=== PATIENT | male | born 1950 | race American Indian/Alaskan Native ===

== ENCOUNTER 2017-10-23 04:53 | Emergency (ER) | payer OTHER ==
[2017-10-23] MEDS ORDERED: ULTRAM PO ONE (07:36)
--- NOTE | 2017-10-23 07:41 | Emergency Department Report ---
Upper Extremity - HPI Chief Complaint: Extremity Injury, Upper Stated Complaint: FALL Time Seen by Provider: 10/23/17 07:23 Upper Extremity: Left Shoulder Occurred When: 2 Days Mechanism: Fall Severity: moderate Symptoms: Yes Pain with Movement, Yes Limited Range of Movement, No Deformity, No Numbness, No Weakness, No Swelling, No Bruising/Ecchymosis, No Laceration or Abrasion Other History: This is a 67-year-old -[place] male who presents with left shoulder and left rib pain status post a fall 2 days ago. Patient states he was at [email or web address] and he fell and hit the left side of his body on a aluminum table. He use a walker to ambulate and the walker fell on top of him when he fell. He went home and applied real-time cream to his left shoulder and felt better Thursday. Patient reports he did a lot of errands and came home around 8 PM and started feeling sharp pains on the left rear while he was trying to hot die picker something off the floor. Patient reports pain is 10 out of 10 and intermittent. The pain is radiating from left ribs to left flank. Patient denies hitting his head, LOC, chest pain, shortness of breath, and nausea or vomiting. ED Review of Systems ROS: Stated complaint: FALL Other details as noted in HPI Constitutional: denies: chills, fever Respiratory: denies: cough, shortness of breath, wheezing Cardiovascular: chest pain (left side rear pain radiating to left flank). denies: palpitations Gastrointestinal: denies: abdominal pain, nausea, diarrhea Musculoskeletal: arthralgia (left shoulder pain). denies: back pain, joint swelling Skin: denies: rash, lesions Neurological: denies: headache, weakness, numbness, paresthesias Psychiatric: denies: anxiety, depression ED Past Medical Hx - Past Medical History Previous Medical History?: Yes Hx Hypertension: Yes Hx Diabetes: Yes Additional medical history: High Cholesterol, chronic pain - Surgical History Past Surgical History?: Yes Additional Surgical History: Hip - Social History Smoking Status: Former Smoker Substance Use Type: None - Medications Home Medications: Home Medications Medication Instructions Recorded Confirmed Last Taken Type Acetaminophen [Tylenol] 1,000 mg PO Q6HR PRN 05/22/13 05/22/13 Unknown History Atorvastatin [Lipitor] 05/22/13 05/22/13 Unknown History Etodolac 300 mg PO BID 05/22/13 05/22/13 Unknown History Gabapentin [Neurontin] 1,200 mg PO Q8H 05/22/13 05/22/13 Unknown History HYDROcodone/ACETAMINOPHEN PO QID PRN 05/22/13 05/22/13 Unknown History [Hydrocodon-Acetaminophn 10-325] HYDROcodone/APAP 10-325 [[place] 1 each PO Q8H #40 tablet 05/22/13 Unknown Rx 10-325 mg TAB] Hydrochlorothiazide [Hctz] DAILY 05/22/13 05/22/13 Unknown History Paroxetine HCl [Paroxetine] 40 PO DAILY 05/22/13 05/22/13 Unknown History metFORMIN [Glucophage] 875 PO BID 05/22/13 05/22/13 Unknown History traMADol [Ultram 50 MG tab] 50 mg PO Q6HR PRN #15 tablet 10/23/17 Unknown Rx Upper Extremity Exam - Exam General: Vital signs noted. No distress. Alert and acting appropriately, Obese. Chest: Regular rate and rhythm, positive tenderness at ribs 7-9, no erythema or swelling. Head and Torso: No HEENT Abnormality, No Neck Tenderness, No Chest/Lungs Abnormality, No Abdominal Tenderness, No Back Tenderness Shoulder Exam: Yes AC Joint Tenderness, No Shoulder Tenderness, No Clavicle Tenderness, No Normal Range of Motion in Shoulder (FROM, limited by pain), No Shoulder Deformity Arm Exam: No Arm/Humerus Tenderness, No Arm Deformity Elbow: Yes Normal Range of Motion in Elbow, No Elbow Tenderness, No Elbow Deformity Forearm: No Forearm Tenderness, No Forearm Deformity, No Pain with Pronation, No Pain with Supination Wrist: Yes Normal ROM in Wrist, No Wrist Tenderness, No Wrist Deformity, No Snuffbox Tenderness, No Pain with Axial Thumb Compression Hand: Yes Normal ROM in Digit(s), No Hand Tenderness, No Hand Deformity, No Digit Tenderness, No Digit(s) Deformity, No Tendon Dysfunction CMS Exam: No Broken Skin, No Normal Distal Pulses, No Normal Capillary Refill, No Normal Distal Sensation ED Course Vital Signs 10/23/17 05:17 Temperature 98.7 F Pulse Rate 77 Respiratory 18 Rate Blood Pressure 152/98 O2 Sat by Pulse 96 Oximetry ED Medical Decision Making - Radiology Data Radiology results: report reviewed X-ray of left ribs impression: Possible nondisplaced fracture of the left anterior A3, and correlation with physical exam is recommended. No pleural effusion or no pneumothorax. Minimal streaky opacities at both lung bases, left greater than right, favor atelectasis. X-ray left shoulder impression: No acute fracture or dislocation. No glenohumeral humeral andacromioclavicular osteoarthritis. 7 mm chronic ossicles. The great tuberosity, representing intra-articular bodies versus calcific tendinopathy. - Medical Decision Making This is a 67-year-old male presents with left shoulder and left rib pain status post fall 2 days ago. Patient was examined by me. Nontoxic appearing and stable. No distress noted. Patient given tramadol 50 mg by mouth whites and ER. X-ray of left ribs and left shoulder obtained and read by radiologist. X- ray of left ribs impression: Possible nondisplaced fracture of the left anterior A3, and correlation with physical exam is recommended. No pleural effusion or no pneumothorax. Minimal streaky opacities at both lung bases, left greater than right, favor atelectasis. X-ray left shoulder impression: No acute fracture or dislocation. No glenohumeral humeral andacromioclavicular osteoarthritis. 7 mm chronic ossicles. The great tuberosity, representing intra-articular bodies versus calcific tendinopathy. Start Tramadol for pain. Patient informed of results. Plan discussed with patient to discharge home and treat outpatient. He agrees with ER plan. Patient discharged home in stable condition. Patient's primary care provider is [place]. Ferrera at the [place]. Follow up with PCP and orthopedic surgery in 24-72 hours. Critical care attestation.: If time is entered above; I have spent that time in minutes in the direct care of this critically ill patient, excluding procedure time. ED Disposition Clinical Impression: Rib pain on left side Osteoarthritis Qualifiers: Osteoarthritis location: shoulder Osteoarthritis type: primary Laterality: left Qualified Code(s): M19.012 - Primary osteoarthritis, left shoulder Rib fracture Qualifiers: Encounter type: initial encounter Rib fracture type: single rib Fracture type: closed Laterality: left Qualified Code(s): S22.32XA - Fracture of one rib, left side, initial encounter for closed fracture Left shoulder pain Qualifiers: Chronicity: acute Qualified Code(s): M25.512 - Pain in left shoulder Disposition: DC-01 TO HOME OR SELFCARE Is pt being admited?: No Does the pt Need Aspirin: No Condition: Stable Instructions: Osteoarthritis (ED), Rib Fracture (ED) Additional Instructions: Rest Use ice or heat on affected area for 20 minutes and off for 2 hours. Take pain medication as needed for pain. Follow up with Primary Care Provider in 24-72 hours. Follow-up with orthopedic surgery in 2-3 days. Prescriptions: traMADol [Ultram 50 MG tab] 50 mg PO Q6HR PRN #15 tablet PRN Reason: Pain Referrals: [facility] [Outside] - 3-5 Days [facility] [Outside] - 3-5 Days ORION KIM MD [Staff Physician] - 3-5 Days [facility] [Provider Group] - 3-5 Days Time of Disposition: 10:05 Print Language: SLOVENIAN
[2017-10-23 08:00] VITALS: BP 158/86
--- NOTE | 2017-10-26 14:24 | XRay Report ---
FINAL REPORT EXAM: XR SHOULDER 2+V LT HISTORY: Left shoulder swelling and pain. TECHNIQUE: Three radiographs of the left shoulder were obtained. No prior studies are available for comparison. FINDINGS: There is no fracture or dislocation. There is mild marginal spurring at the inferomedial humeral head. A 7 mm chronic appearing rounded bony ossicle is seen superior to the greater tuberosity, which may represent intra-articular body or calcific tendinopathy. There is mild acromioclavicular osteoarthritis. No other discrete osseous abnormality is seen. No significant soft tissue abnormality is identified. If pain persists, MRI examination may be warranted for further evaluation. IMPRESSION: 1. No acute fracture or dislocation. 2. Mild glenohumeral and acromioclavicular osteoarthritis. 7 mm chronic bony ossicle superior to the greater tuberosity, representing intra-articular body versus calcific tendinopathy.
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
== END 2017-10-23 10:40 | disposition home or self-care (01) ==
LOC: ED 04:53
DX: S22.32XA Fracture of one rib, left side, initial encounter for closed fracture (principal); M19.012 Primary osteoarthritis, left shoulder; M25.512 Pain in left shoulder; I10 Essential (primary) hypertension; E11.9 Type 2 diabetes mellitus without complications; E78.00 Pure hypercholesterolemia, unspecified; G89.29 Other chronic pain; Z87.891 Personal history of nicotine dependence; W19.XXXA Unspecified fall, initial encounter; Y93.89 Activity, other specified; Y99.8 Other external cause status; Y92.89 Other specified places as the place of occurrence of the external cause

== ENCOUNTER 2018-06-06 16:50 | Emergency (ER) | payer MEDICARE, OTHER ==
[2018-06-06 17:03] VITALS: BP 154/87
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
[2018-06-06] MEDS ORDERED: NORCO 5/325 PO STA (17:43)
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
[2018-06-06] MEDS ORDERED: NORCO 5/325 ONE (19:58)
== END 2018-06-06 20:06 | disposition home or self-care (01) ==
LOC: ED 16:50
DX: M54.5 Low back pain (principal); M25.551 Pain in right hip; M25.512 Pain in left shoulder; I10 Essential (primary) hypertension; E11.9 Type 2 diabetes mellitus without complications; G43.909 Migraine, unspecified, not intractable, without status migrainosus; E78.00 Pure hypercholesterolemia, unspecified; G89.29 Other chronic pain; V49.49XA Driver injured in collision with other motor vehicles in traffic accident, initial encounter; Y93.89 Activity, other specified; Y92.488 Other paved roadways as the place of occurrence of the external cause; Y99.8 Other external cause status
CPT/HCPCS: 72100; 99283

== ENCOUNTER 2019-04-11 15:19 | Emergency (ER) | payer MEDICARE ==
[2019-04-11 18:37] VITALS: BP 163/88
--- NOTE | 2019-04-11 18:49 | Emergency Department Report ---
ED Rash HPI - HPI Chief Complaint: Skin/Abscess/Foreign Body Stated Complaint: BUG/SPIDER BITE Time Seen by Provider: 04/11/19 18:46 Duration: 1 week Location: Back Suspected Cause: Unknown Rash Symptoms: Yes Itching, Yes Blistering, No Facial Swelling, No Tongue/Oral Swelling, No Breathing Difficulties, No Choking Sensation, No Wheezing/Dyspnea, No Peeling, No Fever, No Lightheaded, No Malaise, No Myalgias Severity: severe Other History: This is a 68-year-old male that presents to the ER with a painful blistering rash to back radiating to under right axilla. Patient states he is applying neosporin with worsening symptoms. Patient states the rash is burning and itching constantly. He denies drainage, fever, chills, numbness, tingling, or swelling. ED Review of Systems ROS: Stated complaint: BUG/SPIDER BITE Other details as noted in HPI Constitutional: denies: chills, fever Respiratory: denies: cough, shortness of breath, wheezing Cardiovascular: denies: chest pain, palpitations Gastrointestinal: denies: abdominal pain, nausea, diarrhea Skin: rash (right shoulder blade to under right axilla). denies: lesions Neurological: denies: headache, weakness, paresthesias Psychiatric: denies: anxiety, depression ED Past Medical Hx - Past Medical History Previous Medical History?: Yes Hx Hypertension: Yes Hx Diabetes: Yes Hx Headaches / Migraines: Yes Additional medical history: High Cholesterol, chronic pain - Surgical History Past Surgical History?: Yes Additional Surgical History: Left Hip THR - Social History Smoking Status: Never Smoker Substance Use Type: None - Medications Home Medications: Home Medications Medication Instructions Recorded Confirmed Last Taken Type Acetaminophen [Tylenol] 1,000 mg PO Q6HR PRN 05/22/13 05/22/13 Unknown History Atorvastatin [Lipitor] 05/22/13 05/22/13 Unknown History Etodolac 300 mg PO BID 05/22/13 05/22/13 Unknown History Gabapentin [Neurontin] 1,200 mg PO Q8H 05/22/13 05/22/13 Unknown History HYDROcodone/ACETAMINOPHEN PO QID PRN 05/22/13 05/22/13 Unknown History [Hydrocodon-Acetaminophn 10-325] HYDROcodone/APAP 10-325 [[place] 1 each PO Q8H #40 tablet 12/29/13 Unknown Rx 10-325 mg TAB] PARoxetine HCl [Paroxetine] 40 PO DAILY 05/22/13 05/22/13 Unknown History hydroCHLOROthiazide [Hctz] DAILY 05/22/13 05/22/13 Unknown History metFORMIN [Glucophage] 875 PO BID 05/22/13 05/22/13 Unknown History Azithromycin [Zithromax Z-RUPERTO] 250 mg PO DAILY #6 tablet 10/23/17 Unknown Rx traMADoL [Ultram 50 MG tab] 50 mg PO Q6HR PRN #15 tablet 10/23/17 Unknown Rx Ibuprofen [Motrin] 600 mg PO Q8H PRN #20 tablet 01/01/18 Unknown Rx methOCARBAMOL [Robaxin TAB] 500 mg PO Q6H PRN #15 tablet 01/01/18 Unknown Rx traMADoL [Ultram] 50 mg PO Q6HR PRN #12 tablet 01/01/18 Unknown Rx Meloxicam 15 mg PO DAILY #10 tablet 06/06/18 Unknown Rx Methocarbamol [Robaxin-750] 750 mg PO Q8HR #20 tablet 06/06/18 Unknown Rx Valacyclovir HCl [Valtrex] 1,000 mg PO BID #20 tablet 04/11/19 Unknown Rx traMADoL [Ultram 50 MG tab] 50 mg PO Q6HR PRN #12 tablet 04/11/19 Unknown Rx Rash Exam - Exam General: Vital signs noted. No distress. Alert and acting appropriately. HEENT: No Periorbital Edema, No Conjuctival Injection, No Chemosis, No Perioral Edema, No Tongue Edema, No Uvular Edema, No Compromised Airway, No Drooling Lungs: Yes Good Air Exchange (Normal Breath Sounds), No Wheezes, No Ronchi, No Stridor, No Cough, No Labored Respirations, No Retractions, No Use of Accessory Muscles, No Other Abnormal Lung Sounds Heart: Yes Regular, No Murmur Skin: Yes Erythema, Yes Other ( Erythematous, vesicular rash to right thoracic spine to right axilla following a dermatome, tenderness, crusting to portion over thoracic spine), No Urticarial Rash, No Maculopapular Rash, No Morbilliform rash, No Bulla(e), No Excoriations, No Weeping, No Tenderness, No Edema, No Encrustations ED Course Vital Signs 04/11/19 18:36 Temperature 97.6 F Pulse Rate 67 Respiratory 18 Rate Blood Pressure 163/88 O2 Sat by Pulse 97 Oximetry ED Medical Decision Making - Medical Decision Making This is a 68-year-old male that presents to the ER with painful rash to right side of back. Patient is stable and was examined by me. Erythematous, vesicular rash to right thoracic spine to right axilla following a dermatome, tenderness, crusting to portion over thoracic spine. Start valacyclovir and tramadol. Patient was instructed to Follow-up with a primary care doctor in 3-5 days. At time of discharge, the patient does not seem toxic or ill in appearance. No acute signs of distress noted. Patient agrees to discharge treatment plan of care. No further questions noted by the patient. Critical care attestation.: If time is entered above; I have spent that time in minutes in the direct care of this critically ill patient, excluding procedure time. ED Disposition Clinical Impression: Rash of back Herpes zoster Qualifiers: Herpes zoster complications: without complications Qualified Code(s): B02.9 - Zoster without complications Disposition: DC-01 TO HOME OR SELFCARE Is pt being admited?: No Condition: Stable Instructions: Herpes Zoster (ED) Prescriptions: traMADoL [Ultram 50 MG tab] 50 mg PO Q6HR PRN #12 tablet PRN Reason: Pain Valacyclovir HCl [Valtrex] 1,000 mg PO BID #20 tablet Referrals: SIRIA STEWART MD [Primary Care Provider] - 3-5 Days Time of Disposition: 19:55
== END 2019-04-11 22:06 | disposition home or self-care (01) ==
LOC: ED 15:19
DX: B02.9 Zoster without complications (principal); I10 Essential (primary) hypertension; E11.9 Type 2 diabetes mellitus without complications; G43.909 Migraine, unspecified, not intractable, without status migrainosus; E78.00 Pure hypercholesterolemia, unspecified; G89.29 Other chronic pain; Z79.84 Long term (current) use of oral hypoglycemic drugs; Z79.1 Long term (current) use of non-steroidal anti-inflammatories (NSAID); Z79.899 Other long term (current) drug therapy
CPT/HCPCS: 99282

== ENCOUNTER 2020-07-13 00:16 | Emergency (ER) | payer MEDICARE ==
[2020-07-13] MEDS ORDERED: HYDROcodone/ACETAMINOPHEN 5-325 MG TAB PO ONE (00:50)
--- NOTE | 2020-07-13 00:56 | Emergency Department Report ---
ED General Adult HPI - General Chief complaint: Extremity Problem,Nontraumatic Stated complaint: SWOLLEN FEET/LEGS PAINFUL Source: patient Mode of arrival: Ambulatory Limitations: No Limitations - History of Present Illness Initial comments: pt is a 70 y/o aam with hx of CHF who presents for bilat LE pain and swelling x 1 week, pt denies n/v, no sob , no dizziness, no light headedness. pt denies faill injury or trauma , symptoms exacerbated by activity , symptoms relieved by rest - Related Data Home Medications Medication Instructions Recorded Confirmed Last Taken Acetaminophen [Acetaminophen TAB] 1,000 mg PO Q6HR PRN 05/22/13 07/25/19 Unknown Atorvastatin [Lipitor] 40 mg PO QHS 05/22/13 07/25/19 1 Day Ago ~07/24/19 Etodolac 300 mg PO BID 05/22/13 07/25/19 1 Day Ago ~07/24/19 Gabapentin [Neurontin] 1,200 mg PO Q8H 05/22/13 07/25/19 1 Day Ago ~07/24/19 HYDROcodone/ACETAMINOPHEN 5 mg PO QID PRN 05/22/13 07/25/19 Unknown [Hydrocodon-Acetaminophn 10-325] PARoxetine HCL [PARoxetine] 40 mg PO DAILY 05/22/13 07/25/19 1 Day Ago ~07/24/19 hydroCHLOROthiazide [HCTZ] 25 mg PO DAILY 05/22/13 07/25/19 1 Day Ago ~07/24/19 metFORMIN [Glucophage] 850 mg PO BID 05/22/13 07/25/19 1 Day Ago ~07/24/19 Previous Rx's Medication Instructions Recorded Last Taken Type methOCARBAMOL [Robaxin TAB] 500 mg PO Q6H PRN #15 tablet 01/01/18 Unknown Rx traMADoL [Ultram 50 MG tab] 50 mg PO Q6HR PRN #12 tablet 01/01/18 Unknown Rx Meloxicam 15 mg PO DAILY #10 tablet 06/06/18 1 Day Ago Rx ~07/24/19 Valacyclovir HCl [Valtrex] 1,000 mg PO BID #20 tablet 04/11/19 1 Day Ago Rx ~07/24/19 Pantoprazole [Protonix] 40 mg PO QDAY #20 tablet 07/27/19 Unknown Rx Acetaminophen/Codeine [Tylenol 1 tab PO Q6H PRN #12 tab 07/13/20 Unknown Rx /Codeine # 3 tab] Capsaicin 0.075% [Zostrix Hp 1 applicatio TP TID #1 tube 07/13/20 Unknown Rx 0.075%] Furosemide [Lasix TAB] 40 mg PO QDAY #3 tablet 07/13/20 Unknown Rx Allergies Allergy/AdvReac Type Severity Reaction Status Date / Time No Known Allergies Allergy Verified 05/22/13 04:44 ED Review of Systems ROS: Stated complaint: SWOLLEN FEET/LEGS PAINFUL Other details as noted in HPI Constitutional: denies: chills, fever Eyes: denies: eye pain, eye discharge, vision change ENT: denies: as per HPI Respiratory: denies: cough, shortness of breath, wheezing Cardiovascular: denies: chest pain, palpitations Endocrine: no symptoms reported Gastrointestinal: denies: abdominal pain, nausea, diarrhea Genitourinary: denies: urgency, dysuria Musculoskeletal: arthralgia, other (bilat le pain ). denies: back pain, joint swelling Skin: denies: rash, lesions Neurological: denies: headache, weakness, paresthesias Psychiatric: denies: anxiety, depression Hematological/Lymphatic: denies: easy bleeding, easy bruising ED Past Medical Hx - Past Medical History Previous Medical History?: Yes Hx Hypertension: Yes Hx Heart Attack/AMI: No Hx Diabetes: Yes Hx Liver Disease: No Hx Renal Disease: No Hx Sickle Cell Disease: No Hx Headaches / Migraines: Yes Hx Seizures: No Hx Asthma: No Hx COPD: No Additional medical history: High Cholesterol, chronic pain - Surgical History Past Surgical History?: Yes Hx Pacemaker: No Hx Internal Defibrillator: No Additional Surgical History: Left Hip THR - Social History Smoking Status: Never Smoker Substance Use Type: None - Medications Home Medications: Home Medications Medication Instructions Recorded Confirmed Last Taken Type Acetaminophen [Acetaminophen TAB] 1,000 mg PO Q6HR PRN 05/22/13 07/25/19 Unknown History Atorvastatin [Lipitor] 40 mg PO QHS 05/22/13 07/25/19 1 Day Ago History ~07/24/19 Etodolac 300 mg PO BID 05/22/13 07/25/19 1 Day Ago History ~07/24/19 Gabapentin [Neurontin] 1,200 mg PO Q8H 05/22/13 07/25/19 1 Day Ago History ~07/24/19 HYDROcodone/ACETAMINOPHEN 5 mg PO QID PRN 05/22/13 07/25/19 Unknown History [Hydrocodon-Acetaminophn 10-325] PARoxetine HCL [PARoxetine] 40 mg PO DAILY 05/22/13 07/25/19 1 Day Ago History ~07/24/19 hydroCHLOROthiazide [HCTZ] 25 mg PO DAILY 05/22/13 07/25/19 1 Day Ago History ~07/24/19 metFORMIN [Glucophage] 850 mg PO BID 05/22/13 07/25/19 1 Day Ago History ~07/24/19 methOCARBAMOL [Robaxin TAB] 500 mg PO Q6H PRN #15 tablet 01/01/18 07/25/19 Unknown Rx traMADoL [Ultram 50 MG tab] 50 mg PO Q6HR PRN #12 tablet 01/01/18 07/25/19 Unknown Rx Meloxicam 15 mg PO DAILY #10 tablet 06/06/18 07/25/19 1 Day Ago Rx ~07/24/19 Valacyclovir HCl [Valtrex] 1,000 mg PO BID #20 tablet 04/11/19 07/25/19 1 Day Ago Rx ~07/24/19 Pantoprazole [Protonix] 40 mg PO QDAY #20 tablet 07/27/19 Unknown Rx Acetaminophen/Codeine [Tylenol 1 tab PO Q6H PRN #12 tab 07/13/20 Unknown Rx /Codeine # 3 tab] Capsaicin 0.075% [Zostrix Hp 1 applicatio TP TID #1 tube 07/13/20 Unknown Rx 0.075%] Furosemide [Lasix TAB] 40 mg PO QDAY #3 tablet 07/13/20 Unknown Rx ED Physical Exam - General Limitations: No Limitations General appearance: alert, in no apparent distress - Head Head exam: Present: atraumatic, normocephalic - Eye Eye exam: Present: normal appearance, PERRL, EOMI - ENT ENT exam: Present: normal exam, mucous membranes moist - Neck Neck exam: Present: normal inspection, tenderness, full ROM. Absent: meningis mus, lymphadenopathy, thyromegaly - Expanded Neck Exam Expanded Neck exam: Absent: tenderness, midline deformity, anterior neck swelling, thyroi d mass, carotid bruit, tracheal deviation - Respiratory Respiratory exam: Present: normal lung sounds bilaterally. Absent: respiratory distress, wheezes, stridor, chest wall tenderness - Cardiovascular Cardiovascular Exam: Present: regular rate, normal rhythm, normal heart sounds. Absent: systolic murmur, diastolic murmur, rubs, gallop - GI/Abdominal GI/Abdominal exam: Present: soft, normal bowel sounds. Absent: distended, tenderness, guarding, rebound, rigid, bruit, hernia - Rectal Rectal exam: Present: deferred - Extremities Exam Extremities exam: Present: full ROM, normal capillary refill, pedal edema. Absent: tenderness, joint swelling, calf tenderness - Back Exam Back exam: Present: normal inspection, full ROM. Absent: CVA tenderness (R), CVA tenderness (L), vertebral tenderness - Neurological Exam Neurological exam: Present: alert, oriented X3, CN II-XII intact, normal gait, reflexes normal. Absent: motor sensory deficit - Expanded Neurological Exam Expanded Patient oriented to: Present: person, place Speech: Present: fluid speech Cranial nerves: EOM's Intact: Normal, Gag Reflex: Normal, Tongue Deviation: Normal Motor strength exam: RUE: 5, LUE: 5, RLE: 5, LLE: 5 DTR: ankle (R): 2+, ankle (L): 2+ Best Eye Response (Emely): (4) open spontaneously Best Motor Response (Emely): (6) obeys commands Best Verbal Response ([place]): (5) oriented [place] Total: 15 - Psychiatric Psychiatric exam: Present: normal affect, normal mood - Skin Skin exam: Present: warm, dry. Absent: intact ED Course Vital Signs 07/13/20 00:44 Temperature 98.5 F Pulse Rate 86 Respiratory 16 Rate Blood Pressure 155/101 O2 Sat by Pulse 97 Oximetry ED Medical Decision Making - Lab Data Result diagrams: 07/13/20 01:06 07/13/20 01:06 Labs 07/13/20 07/13/20 07/13/20 01:06 01:06 04:09 WBC 9.5 RBC 4.82 Hgb 14.5 Hct 43.4 MCV 90 MCH 30 MCHC 34 RDW 14.3 Plt Count 258 Lymph % (Auto) 23.0 [place] % (Auto) 6.6 Eos % (Auto) 0.7 Baso % (Auto) 0.6 Lymph # (Auto) 2.2 [place] # (Auto) 0.6 Eos # (Auto) 0.1 Baso # (Auto) 0.1 Seg Neutrophils % 69.1 Seg Neutrophils # 6.6 Sodium 135 L Potassium 4.3 Chloride 98.4 Carbon Dioxide 27 Anion Gap 14 BUN 12 Creatinine 0.7 L Estimated GFR > 60 BUN/Creatinine Ratio 17 Glucose 203 H Calcium 9.4 Total Bilirubin 0.70 AST 32 ALT 36 Alkaline Phosphatase 79 Troponin T < 0.010 < 0.010 Total Protein 7.8 Albumin 4.2 Albumin/Globulin Ratio 1.2 - EKG Data EKG shows normal: sinus rhythm Rate: normal - EKG Data When compared to previous EKG there are: no significant change Interpretation: no acute changes, normal EKG (EKG NSR no ST Elevated [place], interp by ED attending) - Radiology Data Radiology results: report reviewed, image reviewed Cardiomegally without CHF on CXR - Medical Decision Making CXR Cardiomegally without CHF, EKG: NSR no ST Elevated [place], Heart score : 1 for hx, no cp at this time, trop <0.03 x 2, plan, dc to home with rx capsacin oint, tylenol 3, follow up with pcp in 2-3 days Critical care attestation.: If time is entered above; I have spent that time in minutes in the direct care of this critically ill patient, excluding procedure time. ED Disposition Clinical Impression: Arthritis Musculoskeletal leg pain Qualifiers: Laterality: unspecified laterality Qualified Code(s): M79.606 - Pain in leg, unspecified Disposition: DC-01 TO HOME OR SELFCARE Is pt being admited?: No Does the pt Need Aspirin: No Condition: Stable Instructions: Arthritis, [place] Prescriptions: Furosemide [Lasix TAB] 40 mg PO QDAY #3 tablet Acetaminophen/Codeine [Tylenol /Codeine # 3 tab] 1 tab PO Q6H PRN #12 tab PRN Reason: pain Capsaicin 0.075% [Zostrix Hp 0.075%] 1 applicatio TP TID #1 tube Referrals: SIRIA STEWART MD [Primary Care Provider] - 3-5 Days Time of Disposition: 05:48
--- NOTE | 2020-07-13 01:37 | XRay Report ---
CHEST 2 VIEWS INDICATION / CLINICAL INFORMATION: sob. COMPARISON: None available. FINDINGS: SUPPORT DEVICES: None. HEART / MEDIASTINUM: Mild cardiomegaly. LUNGS / PLEURA: No significant pulmonary or pleural abnormality. No pneumothorax. ADDITIONAL FINDINGS: No significant additional findings. IMPRESSION: 1. Cardiomegaly without CHF Signer Name: Ehtan De La Rosa MD Signed: 07/13/2020 1:32 AM Workstation Name: [id number]
[2020-07-13 01:40] LABS: Alanine Aminotransferase 36 units/L (7-56); Albumin 4.2 g/dL (3.9-5); Blood Urea Nitrogen 12 mg/dL (9-20); Calcium 9.4 mg/dL (8.4-10.2); Hemolysis Index 3
[2020-07-13 01:58] LABS: BUN/Creatinine Ratio 17
[2020-07-13 02:50] LABS: Basophils # (Auto) 0.1 K/mm3 (0.0-0.1); Basophils % (Auto) 0.6 % (0.0-1.8); Eosinophils # (Auto) 0.1 K/mm3 (0.0-0.4); Eosinophils % (Auto) 0.7 % (0.0-4.3); Hematocrit 43.4 % (35.5-45.6); Hemoglobin 14.5 gm/dl (11.8-15.2); Lymphocytes # (Auto) 2.2 K/mm3 (1.2-5.4); Mean Corpuscular HGB Conc 34 % (32-34); Mean Corpuscular Volume 90 fl (84-94); Monocytes # (Auto) 0.6 K/mm3 (0.0-0.8); Monocytes % (Auto) 6.6 % (0.0-7.3); Platelet Count 258 K/mm3 (140-440); Red Blood Count 4.82 M/mm3 (3.65-5.03); Red Cell Distribution Width 14.3 % (13.2-15.2)
[2020-07-13 06:56] VITALS: BP 188/105
== END 2020-07-13 06:00 | disposition home or self-care (01) ==
LOC: ED 00:16
DX: M19.91 Primary osteoarthritis, unspecified site (principal); M79.662 Pain in left lower leg; M79.661 Pain in right lower leg; I10 Essential (primary) hypertension; G43.909 Migraine, unspecified, not intractable, without status migrainosus; E11.9 Type 2 diabetes mellitus without complications; Z98.890 Other specified postprocedural states; Z79.84 Long term (current) use of oral hypoglycemic drugs; Z79.899 Other long term (current) drug therapy
CPT/HCPCS: 36415; 71046; 80053; 84484; 85025; 93005